=== PATIENT | male | born 1980 | race Two or more races ===

== ENCOUNTER 2018-10-01 13:34 | Emergency (ER) | payer SELFPAY ==
[~2018-10-01] VITALS: Ht 162.6 cm; Wt 68.0 kg
[2018-10-01 13:35] VITALS: BP 124/72
[2018-10-01] MEDS ORDERED: Acetaminophen 500mg (ES) tab ORAL ONE (14:00)
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
[2018-10-01 15:26] VITALS: BP 124/72
--- NOTE | 2018-10-01 15:26 | Diagnostic Imaging Report ---
History: TRAUMA Exam: XR CXR 2 VIEWS Comparison: None available FINDINGS: The lungs are clear. No evidence of pneumothorax or pleural effusion. The cardiac and mediastinal contours are within limits. Visualized osseous structures appear within limits. IMPRESSION: No evidence of acute traumatic injury.
--- NOTE | 2018-10-01 15:29 | Diagnostic Imaging Report ---
History: TRAUMA Exam: XR RIGHT SHOULDER Comparison: None available FINDINGS: No fracture or dislocation. IMPRESSION: No fracture or dislocation.
--- NOTE | 2018-10-01 15:33 | Diagnostic Imaging Report ---
History: TRAUMA Exam: XR C SPINE 3 views Comparison: None available FINDINGS: No evidence of fracture or malalignment. The disc spaces appear within limits. No evidence of prevertebral soft tissue swelling. IMPRESSION: No evidence of fracture or malalignment.
--- NOTE | 2018-10-01 15:43 | Diagnostic Imaging Report ---
History: TRAUMA Exam: XR L SPINE 3 views Comparison: None available FINDINGS: No evidence of fracture or malalignment. The disc spaces appear within limits. IMPRESSION: No evidence of fracture or malalignment.
--- NOTE | 2018-10-01 15:49 | Diagnostic Imaging Report ---
History: TRAUMA Exam: XR LEFT RIBS 6 images Comparison: None available FINDINGS: Possible nondisplaced acute fracture of the anterior left seventh rib. Otherwise no other sign of acute fracture identified. IMPRESSION: Possible nondisplaced acute fracture of the anterior left seventh rib. Otherwise no other sign of acute fracture identified.
[2018-10-01] MEDS ORDERED: NAPROXEN500 M2 ORAL (15:52)
[2018-10-01 16:01] VITALS: BP 124/72
== END 2018-10-01 16:03 | disposition home or self-care (01) ==
LOC: EDBD 13:34 → EMR 14:05
DX: S22.32XA Fracture of one rib, left side, initial encounter for closed fracture (principal); S16.1XXA Strain of muscle, fascia and tendon at neck level, initial encounter; S43.409A Unspecified sprain of unspecified shoulder joint, initial encounter; S20.219A Contusion of unspecified front wall of thorax, initial encounter; V43.52XA Car driver injured in collision with other type car in traffic accident, initial encounter; Y92.488 Other paved roadways as the place of occurrence of the external cause
CPT/HCPCS: 71046; 72020; 72040; 99284